=== PATIENT | male | born 1975 | race Caucasian/White ===

== ENCOUNTER 2019-01-03 08:41 | Outpatient (CLI) | payer OTHER | END 2019-01-03 23:59 | disposition home or self-care (01) | LOC: CARD 08:41 | PROVIDERS: ATTEND Family Medicine | DX: G62.9 Polyneuropathy, unspecified (principal); R94.131 Abnormal electromyogram [EMG]; R29.898 Other symptoms and signs involving the musculoskeletal system; R20.0 Anesthesia of skin | CPT/HCPCS: 95886; 95908 ==